=== PATIENT | female | born 2005 | race Hispanic/Latino ===

== ENCOUNTER 2025-07-07 11:01 | Emergency (ER) | payer OTHER, SELFPAY ==
[2025-07-07 11:17] VITALS: BP 118/69; PULSE 109; RESP 18; TEMP 36.8; O2SAT 96; BMI 19.3
[2025-07-07 11:21] LABS: Add Manual Diff / Slide Review NO; Hematocrit 36.4 % (36-46); Hemoglobin 12.6 g/dL (12.0-16.0); Lymphocytes Absolute Auto 1600 /uL (1100-4500); Mean Corpuscular HGB Conc 34.5 % (30-36); Mean Corpuscular Hemoglobin 29.8 PG (26-34); Mean Corpuscular Volume 86.5 fL (80-100); Platelet Count 340 X10^3/uL (150-400)
[2025-07-07 11:33] LABS: COVID19 -Nasal RAPID Negative (Negative)
[2025-07-07 11:35] LABS: Acetaminophen < 10 ug/mL (10-30); Alanine Aminotransferase 27 IU/L (<35); Albumin 4.5 g/dL (3.5-5.0); Albumin Globulin Ratio 1.3 (1.0-2.8); Alkaline Phosphatase 112 U/L (38-126); Blood Urea Nitrogen 8 mg/dL (7-17); Calcium 9.3 mg/dL (8.4-10.2); Carbon Dioxide 21 mmol/L (22-32); Chloride 106 mmol/L (98-107); Estimated Glomerular Filt Rate > 60 mL/min (>60); Ethanol (ETOH) < 10 mg/dL (<10); Globulin 3.4 g/dL (1.7-4.1); Glucose 104 mg/dL (70-99); HEMOLYSIS < 15 (0-50); Potassium 3.5 mmol/L (3.4-5.1); Salicylate < 1.0 mg/dL (<20); Sodium 139 mmol/L (137-145); Total Protein 7.9 g/dL (6.3-8.2)
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
--- NOTE | 2025-07-07 11:48 | PC.NURSE ---
Pt history and recent visible signs of cutting on arms/wrist area. See triage note. Pt has attempted multiple times and this time just wanted to end it. He is self aware that he attempted Suicide, and that he states does not want to go to a psych facility. In house GEOSPATIAL INFORMATION TECHNOLOGIST contacted via phone, they will come to see patient after he is more alert and oriented.
[2025-07-07 12:13] LABS: TSH w/ Reflex to FT4 0.91 uIU/mL (0.47-4.68)
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
[2025-07-07 13:49] LABS: Ur Creatinine Normal (Normal); Ur Specific Gravity Normal (Normal); Urine MDMA Negative (Negative); Urine Methamphetamines Positive (Negative); Urine THC Positive (Negative); Urine Tricyclic Antidepressant Negative (Negative); Urine pH Normal (Normal)
[2025-07-07 14:00] LABS: Culture Indicated Urine Specimen Cultured; Ictotest Urine Negative (Negative)
--- NOTE | 2025-07-07 15:55 | PC.NURSE ---
[facility] re dispatched at 1530
--- NOTE | 2025-07-07 16:02 | PC.NURSE ---
Pt sleeping intermittent after PIPING MANAGER visit at [phone]. Will be waiting for [facility] for in person assessment.
--- NOTE | 2025-07-07 17:01 | PC.NURSE ---
[facility] has arrived
[2025-07-07 21:01] VITALS: BP 113/80; PULSE 90; RESP 18; O2SAT 99
== END 2025-07-08 01:10 | disposition short-term general hospital (02) ==
PROVIDERS: Family Medicine; Emergency Provider Emergency Medicine
DX: R45.851 Suicidal ideations (principal); L03.211 Cellulitis of face
CPT/HCPCS: 80053; 80305; 80320; 80329; 81003; 81015; 81025; 84443; 85025; 87077; 87086; 87186; 87635; 96365; 99284; A9270; G0480; J0696